=== PATIENT | male | born 1990 | race Caucasian/White ===

== ENCOUNTER 2020-09-21 11:13 | Emergency (ER) | payer MEDICAID, OTHER ==
[2020-09-21] MEDS ORDERED: Diphtheria,Pertussis(Acell),Tetanus Vaccine 0.5 ML Syringe IM ONE (11:18)
[2020-09-21] MEDS ORDERED: Lidocaine 1% with EPINEPHrine 1:100,000 20 ML MDV INJECT ONE (11:18)
--- NOTE | 2020-09-21 11:21 | EDM.PDOC ---
ED HPI GENERAL MEDICAL PROBLEM - General Chief Complaint: General Stated Complaint: R Leg Puncture Time Seen by Provider: 09/21/20 11:17 Source of Information: Reports: Patient History Limitations: Reports: No Limitations - History of Present Illness INITIAL COMMENTS - FREE TEXT/NARRATIVE: This patient is a 30 year old male that presents to the ER. Patient reports he was working on a deck when he stepped on a lose deck board and it gave way. he reports his leg went through the hole and the deck board hit in the right hoffmann. Patient reports pain and laceration to the site. No other injuries. Onset: Today Onset Date: 09/21/20 Duration: Hour(s): (1) Location: Reports: Lower Extremity, Right (hoffmann) Front/Back Body Image: 1 - pain, tenderness. 2 - wound Severity: Mild Improves with: Reports: None Worsens with: Reports: None Associated Symptoms: Reports: No Other Symptoms r leg Pain Score (Numeric/FACES): 10 - Related Data Allergies Allergy/AdvReac Type Severity Reaction Status Date / Time No Known Allergies Allergy Verified 09/21/20 11:20 Home Meds: Home Meds . [No Known Home Meds] 09/21/20 [History] ED ROS GENERAL - Review of Systems Review Of Systems: See Below Constitutional: Reports: No Symptoms HEENT: Reports: No Symptoms Respiratory: Reports: No Symptoms Cardiovascular: Reports: No Symptoms GI/Abdominal: Reports: No Symptoms Musculoskeletal: Reports: Leg Pain (right hoffmann anterior) Skin: Reports: Wound (right anterior hoffmann) Neurological: Reports: No Symptoms Psychiatric: Reports: Anxiety Hematologic/Lymphatic: Reports: No Symptoms ED EXAM, GENERAL - Physical Exam Exam: See Below Exam Limited By: No Limitations General Appearance: Alert, WD/WN, No Apparent Distress, Anxious Respiratory/Chest: No Respiratory Distress, Lungs Clear, Normal Breath Sounds, No Accessory Muscle Use Cardiovascular: Normal Peripheral Pulses, Regular Rate, Rhythm, No Edema, No Gallop, No JVD, No Murmur, No Rub Peripheral Pulses: 2+: Popliteal (L), Popliteal (R), Posterior Tibial (L), Posterior Tibial (R), Dorsalis Pedis (R) Back Exam: Normal Inspection Extremities: Normal Range of Motion, No Pedal Edema, Normal Capillary Refill, Other (right anterior hoffmann pain, tenderness, wound. Pulses +2, cap refill < 2 sec, sensory/motor function intact. Neurovascular intact. ) Neurological: Alert, Oriented Psychiatric: Anxious, Tearful Skin Exam: Warm, Dry, Normal Color, No Rash, Wound/Incision (anterior hoffmann) ED GENERAL MEDICAL PROCEDURES - Laceration/Wound Repair Right Anterior Leg Lac/wound length in cm: 3 (Y shape) Appearance: Subcutaneous Distal NVT: Neuro & Vascular Intact, No Tendon Injury Anesthetic Type: Local Local Anesthesia - Lidocaine (Xylocaine): 1% with EPI Local Anesthetic Volume: 5cc Skin Prep: Chlorhexidine (Hibiciens) Saline irrigation (cc's): 50 Exploration/Debridement/Repair: Wound Explored, In a Bloodless Field, Explored to Base, No Foreign Material Found, Multiple Flaps Aligned Closed with: [place] # of Sutures: 4 Tetanus Status Addressed: Yes Complications: Yes Complication Description: Patient kicked his leg at local injection intitially. Course - Vital Signs Last Recorded V/S: Last Vital Signs Temp 97.8 F 09/21/20 11:15 Pulse 88 09/21/20 11:15 Resp 18 09/21/20 11:15 BP 148/70 H 09/21/20 11:15 Pulse Ox 98 09/21/20 11:15 - Orders/Labs/Meds Orders: Active Orders 24 hr Category Date Time Status Vaccines to be Administered [RC] PER UNIT ROUTINE Care 09/21/20 11:19 Active Tibia Fibula Rt [CR] Stat Exams 09/21/20 11:14 Taken Meds: Medications Discontinued Medications Generic Name Dose Route Start Last Admin Trade Name Freq PRN Reason Stop Dose Admin Diphtheria/Tetanus/Acell Pertussis 0.5 ml 09/21/20 11:18 09/21/20 11:22 Diphtheria,Pertussis(Acell),Tetanus Vaccine 0.5 Ml Syringe IM 09/21/20 11:19 0.5 ml .ONCE ONE Administration Lidocaine/Epinephrine 20 ml 09/21/20 11:18 09/21/20 11:23 Lidocaine 1% With Epinephrine 1:100,000 20 Ml Mdv INJECT 05/17/21 11:19 20 ml ONETIME ONE Administration - Radiology Interpretation Free Text/Narrative:: Xray Right tib/fib: No fracture seen, no FB. Soft tissue injury. Departure - Departure Time of Disposition: 11:31 Disposition: Home, Self-Care 01 Condition: Fair Clinical Impression: Laceration Contusion Qualifiers: Encounter type: initial encounter Contusion area: lower leg Laterality: right Qualified Code(s): S80.11XA - Contusion of right lower leg, initial encounter - Discharge Information *PRESCRIPTION DRUG MONITORING PROGRAM REVIEWED*: Not Applicable *COPY OF PRESCRIPTION DRUG MONITORING REPORT IN PATIENT AMAURY: Not Applicable Instructions: Contusion, [id number], Laceration Care, Adult, [id number] Forms: ED Department Discharge Additional Instructions: Followup with your primary care provider in about 7 days for staple removal and recheck Return to the ER for worsening of condition or any emergent concerns such as fever, redness, drainage from site Keep the area clean Wash the wound gently with soap and water twice a day gently, rinse, pat dry Sepsis Event Note (ED) - Focused Exam Vital Signs: Vital Signs Temp Pulse Resp BP Pulse Ox 09/21/20 11:15 97.8 F 88 18 148/70 H 98 - My Orders Last 24 Hours: My Active Orders 09/21/20 11:19 Vaccines to be Administered [RC] PER UNIT ROUTINE - Assessment/Plan Last 24 Hours: My Active Orders 09/21/20 11:19 Vaccines to be Administered [RC] PER UNIT ROUTINE Plan: PLEASE SEE RN NOTE FOR PFSH
== END 2020-09-21 11:52 | disposition home or self-care (01) ==
LOC: CC.ED 11:13 → MERGE 11:13 → CC.ED 11:52
DX: S81.811A Laceration without foreign body, right lower leg, initial encounter (principal); Z23 Encounter for immunization; W26.8XXA Contact with other sharp object(s), not elsewhere classified, initial encounter
CPT/HCPCS: 12002; 73590-RT; 90471; 90715; 99283-25

== ENCOUNTER 2022-12-23 18:05 | Emergency (ER) | payer SELFPAY ==
[2022-12-23 18:42] LABS: APPEARANCE,URINE CLEAR (CLEAR); BILIRUBIN,URINE NEGATIVE (NEGATIVE); COLOR,URINE YELLOW (YELLOW); GLUCOSE,URINE NEGATIVE (NEGATIVE); KETONES,URINE NEGATIVE (NEGATIVE); LEUKOCYTE ESTERASE,URINE NEGATIVE (NEGATIVE); NITRITE,URINE NEGATIVE (NEGATIVE); OCCULT BLOOD,URINE MODERATE (NEGATIVE); PH,URINE 6.5 (4.5-8.0); PROTEIN,URINE NEGATIVE (NEGATIVE); UROBILINOGEN,URINE 0.2 EU/dL (0.2-1.0)
[2022-12-23 18:42] LABS: BASOPHILS ABSOLUTE AUTO 0.05 10^3/uL (0.00-0.50); BASOPHILS PERCENT AUTO 0.6 % (0-1); EOSINOPHILS ABSOLUTE AUTO 0.06 10^3/uL (0.00-1.50); EOSINOPHILS PERCENT AUTO 0.7 % (0-6); HEMATOCRIT 38.8 % (42.0-52.0); HEMOGLOBIN 13.6 g/dL (14.0-18.0); IMMATURE GRAN ABSOLUTE AUTO 0.01 10^3/uL (0.00-0.49); IMMATURE GRAN PERCENT AUTO 0.1 % (0.0-4.9); LYMPHOCYTES PERCENT AUTO 21.2 % (24-44); MEAN CORPUSCULAR HEMOGLOBIN 32.9 pg (27.0-32.0); MEAN CORPUSCULAR HGB CONC 35.1 g/dL (32.0-36.0); MEAN CORPUSCULAR VOLUME 93.7 fL (83.0-97.0); MONOCYTES ABSOLUTE AUTO 0.82 10^3/uL (0.00-1.50); MONOCYTES PERCENT AUTO 9.1 % (0-10); NEUTROPHILS ABSOLUTE AUTO 6.14 x10^3/uL (1.80-8.00); NEUTROPHILS PERCENT AUTO 68.3 % (41-71); PLATELET COUNT,PLT 237 10^3/uL (150-400); RED BLOOD CELL COUNT 4.14 x10^6/uL (4.50-6.00)
[2022-12-23 18:51] LABS: BACTERIA,URINE OCCASIONAL /HPF (NOT SEEN); EPITHELIAL CELLS,URINE OCCASIONAL /HPF (NOT SEEN); RBC CLUMPS,URINE PRESENT /HPF (NOT SEEN); RBC,URINE 30-40 /HPF (0-5); WBC,URINE 0-5 /HPF (0-5)
[2022-12-23 18:52] LABS: MUCUS,URINE MODERATE /HPF (NOT SEEN)
[2022-12-23 18:56] LABS: ALBUMIN 3.7 g/dL (3.4-5.0); BILIRUBIN TOTAL 0.4 mg/dL (0.0-1.0); C-REACTIVE PROTEIN 0.18 mg/dL (<=0.30); CALCIUM 9.1 mg/dL (8.4-10.1); EST CRCL DRUG DOSING (CG) 110.19 mL/min; MAGNESIUM 2.1 mg/dL (1.8-2.4); POTASSIUM,K 3.3 mEq/L (3.5-5.0); PROTEIN TOTAL,TP 6.7 g/dL (6.4-8.2)
[2022-12-23] MEDS ORDERED: Tamsulosin 0.4 MG Cap.ER PO STA (19:35)
[2022-12-23] MEDS ORDERED: Take Home: Ketorolac 10 MG Tab, 4 Tab Pack PO ONE (19:35)
== END 2022-12-23 19:50 | disposition home or self-care (01) ==
LOC: CC.ED 18:05
DX: N20.1 Calculus of ureter (principal); F17.210 Nicotine dependence, cigarettes, uncomplicated; Z79.899 Other long term (current) drug therapy
CPT/HCPCS: 36415; 74176; 80053; 81001; 83690; 83735; 85025; 86140; 99284; A9270-GY